=== PATIENT | male | born 1940 | race American Indian/Alaskan Native ===

== ENCOUNTER 2017-12-16 17:36 | Emergency (ER) | payer MEDICARE ==
[2017-12-16] MEDS ORDERED: NACL 0.9% 1000 ML 1,000 ML IV ONE (19:24)
--- NOTE | 2017-12-16 19:28 | Emergency Department Report ---
HPI - General Chief Complaint: Syncope Time Seen by Provider: 12/16/17 19:06 - HPI HPI: 77-year-old male presents to the emergency department by EMS from home after he had a syncopal episode. He was riding in the car with his daughter when he started to appear weak and slightly confused. The patient kept saying that he felt fine. However once they got home and he went to get up out of the car he had trouble doing so and passed out. He was unconscious for about 30 seconds. EMS was called and found the patient have low blood pressure. Patient has a history of mild hypertension for which he takes losartan and hydrochlorothiazide. He also has a history of hyperlipidemia and is on a statin. Currently the patient has no complaints. His primary care physician is a Dr. Leroy. ED Past Medical Hx - Past Medical History Previous Medical History?: Yes Hx Hypertension: Yes Additional medical history: high cholesterol - Surgical History Past Surgical History?: No - Social History Smoking Status: Current Every Day Smoker Substance Use Type: Alcohol ED Review of Systems ROS: Stated complaint: LOW BLOOD PRESSURE Other details as noted in HPI Comment: All other systems reviewed and negative Constitutional: weakness. denies: chills, fever Eyes: denies: eye pain, eye discharge, vision change ENT: denies: ear pain, throat pain Cardiovascular: syncope. denies: chest pain Gastrointestinal: denies: abdominal pain, nausea, diarrhea Genitourinary: denies: urgency, dysuria Musculoskeletal: denies: back pain, joint swelling, arthralgia Skin: denies: rash, lesions Neurological: denies: headache, numbness Physical Exam - Physical Exam Vital Signs: Vital Signs 12/16/17 18:15 Temperature 98.7 F Pulse Rate 72 Respiratory 16 Rate Blood Pressure 118/75 Blood Pressure 118/75 [Left] O2 Sat by Pulse 99 Oximetry ED Course Vital Signs 12/16/17 18:15 Temperature 98.7 F Pulse Rate 72 Respiratory 16 Rate Blood Pressure 118/75 Blood Pressure 118/75 [Left] O2 Sat by Pulse 99 Oximetry ED Medical Decision Making - Lab Data Result diagrams: 12/16/17 19:47 12/16/17 19:47 Critical care attestation.: If time is entered above; I have spent that time in minutes in the direct care of this critically ill patient, excluding procedure time. ED Disposition Clinical Impression: Syncope Qualifiers: Syncope type: unspecified Qualified Code(s): R55 - Syncope and collapse Disposition: TO HOME OR SELFCARE Is pt being admited?: No Condition: Stable Instructions: Syncope (ED) Additional Instructions: Please return to the emergency Department immediately if there are any further episodes of passing out or he develop any chest pain or shortness of breath. Please see her primary care physician as soon as you return to [place]. Referrals: PRIMARY CARE, [Primary Care Provider] - [facility] Time of Disposition: 21:43
[2017-12-16 20:07] LABS: Hematocrit 36.4 % (35.5-45.6); Hemoglobin 12.1 gm/dl (11.8-15.2); Mean Corpuscular HGB Conc 33 % (32-34); Mean Corpuscular Hemoglobin 29 pg (28-32); Mean Corpuscular Volume 89 fl (84-94); Platelet Count 162 K/mm3 (140-440); Red Blood Count 4.12 M/mm3 (3.65-5.03); Red Cell Distribution Width 13.9 % (13.2-15.2)
[2017-12-16 20:14] LABS: INR 0.95 (0.87-1.13)
--- NOTE | 2017-12-16 20:21 | Cat Scan Report ---
FINAL REPORT PROCEDURE: CT head without contrast. TECHNIQUE: Computerized tomography of the head was performed without contrast material. HISTORY: Syncope. COMPARISON: No prior studies are available for comparison. FINDINGS: The ventricles are normal in size. The ferreira matter and white matter appear normal. There are no mass lesions. There is no intracranial hemorrhage. The calvarium appears intact. The mastoid air cells and visualized paranasal sinuses are clear. IMPRESSION: Normal study.
[2017-12-16 20:22] LABS: Alanine Aminotransferase 15 units/L (7-56); Albumin 4.2 g/dL (3.9-5); BUN/Creatinine Ratio 15; Blood Urea Nitrogen 17 mg/dL (9-20); Calcium 9.5 mg/dL (8.4-10.2); Hemolysis Index 10
[2017-12-16 20:48] LABS: Basophils % (Manual) 0 % (0.0-1.8); Eosinophils % (Manual) 0 % (0.0-4.3); Platelet Estimate Consistent w Auto; RBC Morphology Normal; Total Cells Counted 100
[2017-12-16 21:15] LABS: Bilirubin,Urine NEG (Negative); Blood,Urine SM (Negative); Color,Urine Straw (Yellow); Protein,Urine <15 mg/dL mg/dL (Negative); Urobilinogen,Urine < 2.0 mg/dL (<2.0)
--- NOTE | 2017-12-16 21:55 | XRay Report ---
FINAL REPORT PROCEDURE: XR CHEST 1V AP TECHNIQUE: Chest radiograph anteroposterior view. CPT 22037 HISTORY: Syncope COMPARISON: No prior studies are available for comparison. FINDINGS: Heart: Normal. Mediastinum/Vessels: Normal. Lungs/Pleural space: Lungs are clear and expanded. There are no infiltrates.. Bony thorax: No acute osseous abnormality. Life support devices: None. IMPRESSION: No acute cardiopulmonary abnormality.
[2017-12-16 22:06] VITALS: BP 118/79
== END 2017-12-16 22:18 | disposition home or self-care (01) ==
LOC: ED 17:36
DX: R55 Syncope and collapse (principal); I10 Essential (primary) hypertension; E78.5 Hyperlipidemia, unspecified; F17.200 Nicotine dependence, unspecified, uncomplicated; Z79.899 Other long term (current) drug therapy
CPT/HCPCS: 36415; 70450; 71045; 80053; 81001; 84443; 84484; 85007; 85025; 85610; 93005; 93010; 96360; 96361; 99285; J7030